=== PATIENT | female | born 1980 | race Caucasian/White ===

== ENCOUNTER → 2018-01-31 | Outpatient (CLI) | payer BC ==
[~2018-01-31] MED LIST: GENTAMICIN EYE D5 ML OS; KLONOPIN0.5 MG PO; PERCOCET 325 MG1 TA2 PO; VIT B 12; VITAMINS
== END ==
LOC: COL.RAD 09:00
DX: N85.2 Hypertrophy of uterus (principal); D25.9 Leiomyoma of uterus, unspecified; Z90.721 Acquired absence of ovaries, unilateral